=== PATIENT | female | born 1990 | race Hispanic/Latino ===

== ENCOUNTER 2018-10-15 09:45 | Inpatient (IN) | payer BC | END 2018-10-16 19:50 | disposition home or self-care (01) | LOC: LDH 09:45 → WSH 23:10 ==

== ENCOUNTER 2022-06-02 22:51 | Emergency (ER) | payer BC ==
[~2022-06-02] VITALS: Ht 157.5 cm; Wt 59.0 kg
[~2022-06-02 22:51] MED LIST: PREN-154 PO
[2022-06-03] MEDS ORDERED: KETOROLAC 15MG/ML VIAL (15MG/ML) IV ONE
[2022-06-03] MEDS ORDERED: DiphenhydrAMINE HCL 50 MG/ML VIAL IV ONE
[2022-06-03] MEDS ORDERED: PROCHLORPERAZINE 10MG/2ML INJ IV ONE
[2022-06-03 00:38] LABS: BASOPHILS % (AUTO) 0.3 % (0.0-5.0); EOSINOPHILS % (AUTO) 0.5 % (0.0-8.0); HEMATOCRIT 27.8 % (36-48); LYMPHOCYTES % (AUTO) 14.4 % (21.0-51.0); MEAN CORPUSCULAR HEMOGLOBIN 24.2 pg (27.0-33.0); MEAN CORPUSCULAR HGB CONC 30.9 g/dL (32.0-36.0); MEAN CORPUSCULAR VOLUME 78.1 fL (79-99); MONOCYTES % (AUTO) 5.1 % (3.0-13.0); NEUTROPHILS % (AUTO) 78.8 % (40.0-77.0); NUCLEATED RED BLOOD CELLS 0.4 % (0.0-0.19); PLATELET COUNT (AUTO) 162 K/uL (130-400); RED BLOOD CELL COUNT(AUTO) 3.56 MIL/uL (4.00-5.50); RED CELL DISTRIBUTION WIDTH 16.1 % (11.0-15.5); WHITE BLOOD COUNT (AUTO) 11.8 K/uL (4.8-10.8)
[2022-06-03 01:40] VITALS: BP 129/70
== END 2022-06-03 01:46 | disposition home or self-care (01) ==
LOC: EDH 22:51
DX: O89.4 Spinal and epidural anesthesia-induced headache during the puerperium (principal); Z91.040 Latex allergy status; Z98.890 Other specified postprocedural states
CPT/HCPCS: 99284; 85025; 36415; 96374; 96375; J1200; J0780; J1885